=== PATIENT | female | born 1980 | race Caucasian/White ===

== ENCOUNTER 2019-02-09 11:03 | Observation (INO) | payer OTHER ==
[~2019-02-09] VITALS: Ht 162.5 cm; Wt 108.4 kg
--- NOTE | ~2019-02-09 | H ---
[address] [address] HISTORY AND PHYSICAL Name: BRENNAN DURHAM Room: [address] Stephenie Arenas#: [id number] Admission: 02/09/19 Attend Phys: Zeyad Felix DO Discharge: 02/10/19 Date of : 78 Report #: [id number] THIS REPORT FOR: //name// Please refer to the History and Physical performed in the physician's office. By: [id number] Records Staff MATT /JUAN
--- NOTE | ~2019-02-09 | OP ---
[address] [address] OPERATIVE REPORT Name: DURHAM,BRENNANJc ESCOBARSHARI Room: [address] Deepa#: [id number] Admission: 02/09/19 Attend Phys: Zeyda Felix DO Discharge: 02/10/19 Date of : 78 Report #: [id number] THIS REPORT FOR: //name// CC: Zeyad Starks II DICTATED BY: Dakotah Ashford DO DATE OF SERVICE: 02/09/2019 This is Dakotah Ashford, PGY 3, dictating operative report on behalf of Dr. Zeyad Felix. PREOPERATIVE DIAGNOSIS: Ventral hernia. POSTOPERATIVE DIAGNOSIS: Ventral hernia. PROCEDURE PERFORMED: Da George assisted laparoscopic ventral hernia repair with mesh. SURGEON: Zeyad Felix DO CO-SURGEON: Dakotah Ashford, PGY-3 EMERY WHEEL MOLDER: None. ANESTHESIA: General. ESTIMATED BLOOD LOSS: 10 mL. SPECIMENS REMOVED: None. IMPLANTS: An [address] [place] mesh. HISTORY OF PRESENT ILLNESS: The patient is a pleasant 38-year-old female who presented to the office with complaint of bulge just above her umbilicus. She was found to have a reasonably sized ventral hernia and we did discuss repair. We elected to proceed with da George assisted laparoscopic ventral hernia repair with mesh. Risks and complications were discussed at length and she agreed to proceed with surgery. DESCRIPTION OF PROCEDURE: After consent was obtained, the patient was taken to the operating room and placed in the supine position. SCDs were applied to bilateral lower extremities. Safety belt placed [place] [address] OPERATIVE REPORT Name: BRENNAN DURHAM Room: [address] M..#: [id number] Admission: 02/09/19 Attend Phys: Zeyad Felix DO Discharge: 02/10/19 Date of : 78 Report #: [id number] Two grams of Ancef were given for surgical prophylaxis. The patient was then underwent general anesthesia and intubation without any complication. The patient was prepped and draped in the standard sterile fashion. Timeout was performed to confirm the patient, procedure. One 12 mm trocar was inserted into the right upper quadrant under Optiview visualization. Once all the layers of the fascia and musculature were gone through and we were suspected to be in the abdomen, insufflation was initiated, which indicated that we were in the correct position. The camera was advanced. Intra-abdominal contents were inspected. There was a large hernia that could be seen just above the umbilicus with mesentery within the hernia. Pictures were taken. Two 8 mm trocars were placed under direct visualization on the right lateral side of the abdomen. At this point, the da George robot was docked alongside the patient and all ports were connected to the trocars that were already in the abdomen. At this point, Dr. Felix did go over to the surgeon's console and take control of the robot. The omentum was pulled out of the hernia with ease. The hernia defect itself measured roughly 3 x 3 cm. Some of the peritoneum was dissected off of the actual fascial defect to allow for a better plan for mesh. A V-Loc suture was then used to close the fascial defect in a continuous fashion. At this point, we elected to use an [address] [place] mesh. This was inserted into the abdomen via the 12 mm trocar in the right upper quadrant. A Roddy-Odnna was inserted just above the umbilicus and 0 Prolene that was affixed to the mesh was pulled up through the midline. This allowed us to secure the mesh to the anterior abdominal wall. Once the mesh was in good position, the V-Loc sutures were run in a continuous fashion along the outside of the mesh above the peritoneum. Once the mesh was completely secured there was no evidence of any space that could allow for future herniation. Pictures were taken. All needles were removed from the abdomen. All counts were correct x 2 at the end of the case. Insufflation was let down. All trocars were removed under direct visualization. The robot was docked. Prior to removal of all trocars, the 12 mm trocar site was closed with Roddy-Donna using a 0 Vicryl as well as the left lower quadrant incision. All skin incisions were closed with 4-0 Monocryl. The patient tolerated the procedure well and was awoken from general anesthesia without any complication and transferred to PACU in stable condition. By: [id number] Felix DO /brien
[~2019-02-09 11:03] MED LIST: BUPROPION HCL200 MG; DESYREL150 MG PO; KLONOPIN1 MG PO; RESTORIL30 MG; TRILEPTAL150 MG PO; WELLBUTRIN SR150 MG
[2019-02-09 11:28] LABS: HEMATOCRIT 42.5 % (37.0-47.0); HEMOGLOBIN 14.1 gm/dL (12.0-15.0)
[2019-02-09 19:15] VITALS: BP 125/70
--- NOTE | 2019-02-09 19:15 | NUR ---
PT ADMITTED PER WHEELCHAIR FROM PACU FOLLOWING ROBOTIC HERNIA REPAIR. AOX4, HISTORY OBTAINED AND ASSESSMENT PERFORMED, SEE ADMIT NOTES. UP WITH STEADY GAIT TO BR TRYING TO VOID. CO PAIN WITH MOVEMENT BUT DENIES NEED FOR PAIN MED AT THIS TIME. WILL CONTINUE TO MONITOR AND PROVIDE CARES NEEDED. FAMILY MEMBERS AT BEDSIDE, CALL LITE IN [place] RE[place].
[2019-02-10] VITALS: BP 120/57
[2019-02-10 04:00] VITALS: BP 99/51
--- NOTE | 2019-02-10 05:31 | NUR ---
PT HAS SLEPT OFF AND ON OVERNIGHT, RECEIVING PAIN MED FOR CO ABD PAIN. ABD BINDER IN PLACE, SURGICAL DRSG CDI. UP WITH ASSIST TO BATHROOM TO VOID. NO LABS THIS MORNING. ENCOURAGED IS USE. PT CO PAIN WITH ACTIVITY, IMPROVES WITH REST. SCDS ON. VSS. ABLE TO USE CALL LITE AND MAKE NEEDS KNONN. ROOM AIR. CAPNO ON OVERNIGHT WITHOUT ALARMS. LFA SL. ANTICIPATING DISCHARGE HOME TODAY WITH FOLLOWUP IN DR OFFICE.
[2019-02-10 08:15] VITALS: BP 106/53
--- NOTE | 2019-02-10 08:36 | NUR ---
REVIEWED NURSING STUDENTS CHARTING AND AGREE.
[2019-02-10 08:49] VITALS: BP 106/53
[2019-02-10] MEDS ORDERED: NORCO 5-325 TA1 EAC1 PO (09:19)
--- NOTE | 2019-02-10 09:48 | NUR ---
PT DISCHARGED AND LEFT UNIT AT 0946 WITH SPOUSE AND NURSING STAFF TO HOME. IV OUT. PRESCRIPTION AND CARE NOTES GIVEN. PT STABLE UPON DISCHARGE.
== END 2019-02-10 09:46 | disposition home or self-care (01) ==
LOC: M.SUR 11:03 → M.TBA 18:50 → M.ORTHSURG 19:23
PROVIDERS: ADMIT Surgery
DX: K43.9 Ventral hernia without obstruction or gangrene (principal)

== ENCOUNTER 2019-03-04 06:58 | Emergency (ER) | payer OTHER ==
[~2019-03-04] VITALS: Ht 165.1 cm; Wt 108.9 kg
[~2019-03-04 06:58] MED LIST changes: +NORCO 5-325 TA1 EAC1 PO
[2019-03-04 07:33] LABS: ABSOLUTE BASOPHILS 0.1 thou/uL (0.0-0.2); ABSOLUTE EOSINOPHILS 0.3 thou/uL (0.0-0.7); ABSOLUTE LYMPHOCYTES 2.1 thou/uL (0.8-5.3); ABSOLUTE MONOCYTES 0.4 thou/uL (0.0-1.2); ABSOLUTE NEUTROPHILS 4.2 thou/uL (1.6-8.1); BASOPHILS 0.8 %; EOSINOPHILS 3.6 %; HEMATOCRIT 40.3 % (37.0-47.0); HEMOGLOBIN 13.5 gm/dL (12.0-15.0); LYMPHOCYTES 29.6 %; MCH 29.3 pg (26.0-34.0); MCHC 33.5 g/dL (28.0-37.0); MCV 87.3 fL (80.0-100.0); MPV 7.3 fl. (7.2-11.1); NUCLEATED RBCS 0 /100WBC; PLATELET COUNT* 296 thou/uL (150-400); RBC 4.61 mil/uL (4.20-5.00); RDW-CV 13.6 % (10.5-14.5)
[2019-03-04 07:45] LABS: CALCIUM 8.7 mg/dL (8.5-10.1)
[2019-03-04 07:50] LABS: ALBUMIN 3.4 g/dL (3.4-5.0); TOTAL BILIRUBIN 0.1 mg/dL (<0.1-1.0)
[2019-03-04] MEDS ORDERED: HYDROCODON-ACE1 EAC7 PO (10:46)
[2019-03-04 11:09] VITALS: BP 113/71
== END 2019-03-04 11:09 | disposition home or self-care (01) ==
LOC: M.ERS 06:58
PROVIDERS: Emergency Medicine
DX: G89.18 Other acute postprocedural pain (principal); F41.9 Anxiety disorder, unspecified; F31.9 Bipolar disorder, unspecified; K21.9 Gastro-esophageal reflux disease without esophagitis; Z90.49 Acquired absence of other specified parts of digestive tract; Z90.721 Acquired absence of ovaries, unilateral

== ENCOUNTER → 2019-03-19 | Outpatient (CLI) | payer OTHER ==
[~2019-03-19] MED LIST changes: +HYDROCODON-ACE1 EAC7 PO
== END ==
LOC: M.CT 07:06
DX: S30.1XXA Contusion of abdominal wall, initial encounter (principal); N28.1 Cyst of kidney, acquired; K44.9 Diaphragmatic hernia without obstruction or gangrene; N83.291 Other ovarian cyst, right side; D25.9 Leiomyoma of uterus, unspecified; Z90.49 Acquired absence of other specified parts of digestive tract; X58.XXXA Exposure to other specified factors, initial encounter; Y93.89 Activity, other specified; Y92.89 Other specified places as the place of occurrence of the external cause; Y99.8 Other external cause status